=== PATIENT | male | born 1995 | race Caucasian/White ===

== ENCOUNTER 2018-01-05 11:32 | Emergency (ER) | payer OTHER ==
[~2018-01-05] VITALS: Ht 177.8 cm; Wt 86.9 kg
[~2018-01-05 11:32] MED LIST: ALBUAER INH
[2018-01-05 11:33] VITALS: Ht 177.8 cm; Wt 86.9 kg
[2018-01-05] MEDS ORDERED: SODIUM CHLORIDE 0.9% 1000ML 1,000 ML IV STA ×2 (11:57→13:35)
[2018-01-05] MEDS ORDERED: KETOROLAC TROMETHAMINE 15 MG/ML VIAL IV STA (11:57)
[2018-01-05] MEDS ORDERED: OPTIRAY 320 IV PRN (12:00)
[2018-01-05] MEDS ORDERED: EFF/375 PO (12:10)
[2018-01-05] MEDS ORDERED: ALBUAER INH (12:10)
[2018-01-05] MEDS ORDERED: CNC/18 PO (12:10)
[2018-01-05] MEDS ORDERED: MONT1TAB3 PO (12:10)
[2018-01-05 12:17] LABS: BASO % 0.1 %; BASO ABS # 0.02 K/uL (0-0.2); EOS % 0.1 %; EOS ABS # 0.01 K/uL (0-0.5); HEMATOCRIT 43.5 % (42-52); IG# 0.04 K/uL (0.00-0.02); LYMPH % 9.4 %; MEAN CELL VOLUME 81.9 fL (80-100); MEAN CORPUSCULAR HEMOGLOBIN 28.2 pg (25-34); MEAN CORPUSCULAR HGB CONC 34.5 g/dl (32-36); MEAN PLATELET VOLUME 9.9 fL (7.4-10.4); MONO % 15.8 %; MONO ABS # 2.68 K/uL (0.11-0.59); NEUT % 74.4 %; NEUT ABS # 12.64 K/uL (1.4-6.5); PLATELET COUNT 143 K/uL (130-400); RED CELL DISTRIBUTION WIDTH CV 13.5 % (11.5-14.5); RED CELL DISTRIBUTION WIDTH SD 40.6 fL (36.4-46.3); WHITE BLOOD COUNT 16.99 K/uL (4.8-10.8)
[2018-01-05 12:34] LABS: ALBUMIN 3.8 gm/dl (3.4-5.0); CALCIUM 9.2 mg/dl (8.5-10.1); POTASSIUM 4.1 mmol/L (3.5-5.1)
[2018-01-05 12:37] LABS: TOTAL PROTEIN 8.3 gm/dl (6.4-8.2)
--- NOTE | 2018-01-05 13:05 | DIAGNOSTIC IMAGING REPORT ---
ABD/PELVIS IV CONTRAST ONLY CT DOSE: 555.80 mGy.cm HISTORY: Pain. Fever. RLQ pain, fever TECHNIQUE: Multiaxial CT images of the abdomen and pelvis were performed following the use of intravenous contrast. A dose lowering technique was utilized adhering to the principles of ALARA. COMPARISON STUDY: None. FINDINGS: Lung bases are clear. Liver spleen pancreas and kidneys enhance uniformly. No evidence for hydronephrosis. Pancreas is uniform. The appendix is normal. Several fluid-filled loops of small bowel suggesting a mild ileitis. No evidence for abscess collection or obstruction. IMPRESSION: 1. Several fluid-filled loops of small bowel suggesting a mild ileitis.. 2. No evidence for abscess collection or obstruction. 3. Normal appendix. The above report was generated using voice recognition software. It may contain grammatical, syntax or spelling errors. Electronically signed by: Daniel Phelan M.D. 01/05/2018 1:04 PM Dictated Date/Time: 01/05/2018 12:57 PM
[2018-01-05] MEDS ORDERED: ACETAMINOPHEN 500 MG TAB ONE (13:24)
[2018-01-05 14:01] VITALS: BP 123/77; PULSE 90; O2SAT 95
[2018-01-05 14:48] VITALS: TEMP 37.2
[2018-01-05] MEDS ORDERED: AMOX875T PO (14:55)
--- NOTE | 2018-01-05 14:57 | EMERGENCY ROOM VISIT NOTE ---
History First contact with patient: 11:41 Chief Complaint: DIZZY Stated Complaint: DIZZY - REFERRED BY DR Sandoval Triage Summary: High fevers, inflamed tonsils, RLQ abdominal pain, dizziness, and dysuria x2 days. Thought he had an STI as he had recent unprotected intercourse, was tested, and prophylactically treated yesterday with rocephin IM and PO zithromax. Is also currently on cipro for UTI tx. History of Present Illness The patient is a 22 year old male who presents to the Emergency Room with multiple complaints. The patient reports that he has a fever. He feels that his body is "trying to fight something." He states that his symptoms started on Tuesday when his tonsils felt "warm." He then developed painful urination. He was seen a few days ago by the [facility] walk-in group. At that time, he was concerned that he might have an STI and he was treated with an injection of ceftriaxone and a one-time dose of Zithromax. They also started him on ciprofloxacin for presumed urinary tract infection. He was rechecked today and reported worsening symptoms with abdominal pain and sore throat. The patient has a history of mono a few years ago. Monospot was rechecked there and was negative. He also had a negative strep swab and negative flu swab. The patient rates his overall discomfort a 9/10. He states that he has achiness in his entire body. He denies any changes in bowel movements, nausea or vomiting. He does report he has had loose stools since starting the ciprofloxacin. Review of Systems A complete 10 point review of systems was reviewed with the patient with pertinent positives and negatives as per history of present illness. All else were negative. Past Medical/Surgical History Medical Problems: (1) Allergy to dog dander (2) Asthma Social History Smoking Status: Never Smoker Marital Status: single Housing Status: lives with roommate Occupation Status: student Current/Historical Medications Scheduled Amoxicillin & Pot Clavulanate (Augmentin 875-125 mg), 1 TAB PO BID Methylphenidate Hcl (Concerta), 18 MG PO DAILY Montelukast Sodium (Singulair), 10 MG PO DAILY Venlafaxine Hcl (Effexor), 37.5 MG PO DAILY Scheduled PRN Albuterol Sulfate (Proventil Hfa), 2 PUFFS INH Q4 PRN for SOB/Wheezing Physical Exam Vital Signs Date Time Temp Pulse Resp B/P (MAP) Pulse Ox O2 Delivery O2 Flow Rate FiO2 01/05/18 14:48 37.2 01/05/18 14:01 90 18 123/77 95 Room Air 01/05/18 13:21 38.3 01/05/18 12:57 37.6 95 18 137/74 96 Room Air 01/05/18 12:16 101 01/05/18 11:48 39.1 98 Room Air 01/05/18 11:43 107 24 111/63 117 129/83 112 118/83 01/05/18 11:33 37.7 114 20 137/75 96 Room Air Physical Exam VITALS: Vitals are noted on the nurse's note and reviewed by myself. Vital signs stable. GENERAL: This is a 22-year-old male, in no acute distress, nondiaphoretic, well- developed well-nourished. SKIN: The skin was without rashes. EARS: External auditory canals clear, tympanic membranes pearly nieves without erythema or effusion bilaterally. EYES: Pupils equal round and reactive to light and accommodation. MOUTH: Mucous membranes moist. Tonsils enlarged 3+ bilaterally with exudate present, specifically on the left tonsil. NECK: Supple without nuchal rigidity. No lymphadenopathy. HEART: Regular rate and rhythm without murmurs gallops or rubs. LUNGS: Clear to auscultation bilaterally without wheezes, rales or rhonchi. ABDOMEN: Positive bowel sounds x 4. Soft, nondistended. Moderate tenderness to palpation in the right lower quadrant with no guarding or rebound tenderness. NEURO: Patient was alert and oriented to person place and time. Medical Decision & Procedures ER Provider Diagnostic Interpretation: ABD/PELVIS IV CONTRAST ONLY FINDINGS: Lung bases are clear. Liver spleen pancreas and kidneys enhance uniformly. No evidence for hydronephrosis. Pancreas is uniform. The appendix is normal. Several fluid-filled loops of small bowel suggesting a mild ileitis. No evidence for abscess collection or obstruction. IMPRESSION: 1. Several fluid-filled loops of small bowel suggesting a mild ileitis.. 2. No evidence for abscess collection or obstruction. 3. Normal appendix. Electronically signed by: Daniel Phelan M.D. Laboratory Results 01/05/18 12:05 Red Blood Count 5.31, Mean Corpuscular Volume 81.9, Mean Corpuscular Hemoglobin 28.2, Mean Corpuscular Hemoglobin Concent 34.5, Mean Platelet Volume 9.9, Neutrophils (%) (Auto) 74.4, Lymphocytes (%) (Auto) 9.4, Monocytes (%) (Auto) 15.8, Eosinophils (%) (Auto) 0.1, Basophils (%) (Auto) 0.1, Neutrophils # (Auto ) 12.64, Lymphocytes # (Auto) 1.60, Monocytes # (Auto) 2.68, Eosinophils # (Auto ) 0.01, Basophils # (Auto) 0.02 01/05/18 12:05 Test 01/05/18 11:55 01/05/18 12:05 Urine Color DK YELLOW Urine Appearance CLEAR (CLEAR) Urine pH 5.5 (4.5-7.5) Urine Specific [place] 1.033 (1.000-1.030) Urine Protein 1+ (NEG) Urine Glucose (UA) NEG (NEG) Urine Ketones TRACE (NEG) Urine Occult Blood NEG (NEG) Urine Nitrite NEG (NEG) Urine Bilirubin NEG (NEG) Urine Urobilinogen NEG (NEG) Urine Leukocyte Esterase NEG (NEG) Urine WBC (Auto) 1-5 /hpf (0-5) Urine RBC (Auto) 5-10 /hpf (0-4) Urine Hyaline Casts (Auto) 1-5 /lpf (0-5) Urine Epithelial Cells (Auto) 10-20 /lpf (0-5) Urine Bacteria (Auto) NEG (NEG) White Blood Count 16.99 K/uL (4.8-10.8) Red Blood Count 5.31 M/uL (4.7-6.1) Hemoglobin 15.0 g/dL (14.0-18.0) Hematocrit 43.5 % (42-52) Mean Corpuscular Volume 81.9 fL (80-100) Mean Corpuscular Hemoglobin 28.2 pg (25-34) Mean Corpuscular Hemoglobin Concent 34.5 g/dl (32-36) Platelet Count 143 K/uL (130-400) Mean Platelet Volume 9.9 fL (7.4-10.4) Neutrophils (%) (Auto) 74.4 % Lymphocytes (%) (Auto) 9.4 % Monocytes (%) (Auto) 15.8 % Eosinophils (%) (Auto) 0.1 % Basophils (%) (Auto) 0.1 % Neutrophils # (Auto) 12.64 K/uL (1.4-6.5) Lymphocytes # (Auto) 1.60 K/uL (1.2-3.4) Monocytes # (Auto) 2.68 K/uL (0.11-0.59) Eosinophils # (Auto) 0.01 K/uL (0-0.5) Basophils # (Auto) 0.02 K/uL (0-0.2) RDW Standard Deviation 40.6 fL (36.4-46.3) RDW Coefficient of Variation 13.5 % (11.5-14.5) Immature Granulocyte % (Auto) 0.2 % Immature Granulocyte # (Auto) 0.04 K/uL (0.00-0.02) Anion Gap 7.0 mmol/L (3-11) Est Creatinine Clear Calc Drug Dose 118.6 ml/min Estimated GFR () 122.4 Estimated GFR (Non- 105.6 BUN/Creatinine Ratio 10.4 (10-20) Calcium Level 9.2 mg/dl (8.5-10.1) Total Bilirubin 0.8 mg/dl (0.2-1) Aspartate Amino Transf (AST/SGOT) 17 U/L (15-37) Alanine Aminotransferase (ALT/SGPT) 24 U/L (12-78) Alkaline Phosphatase 77 U/L (45-117) Total Protein 8.3 gm/dl (6.4-8.2) Albumin 3.8 gm/dl (3.4-5.0) Globulin 4.5 gm/dl (2.5-4.0) Albumin/Globulin Ratio 0.8 (0.9-2) Medications Administered Medications (Trade) Dose Ordered Sig/Dominga Route Start Time Stop Time Status Last Admin Dose Admin Sodium Chloride 1,000 ml @ 999 mls/hr Q1H1M STAT IV 01/05/18 11:57 01/05/18 12:57 DC 01/05/18 12:15 999 MLS/HR Ketorolac Tromethamine (Toradol Inj) 15 mg NOW STAT IV 01/05/18 11:57 01/05/18 11:59 DC 01/05/18 12:16 15 MG Acetaminophen (Tylenol Tab) 1,000 mg STK-MED ONCE .ROUTE 01/05/18 13:24 01/05/18 13:25 DC 01/05/18 13:28 1,000 MG Sodium Chloride 1,000 ml @ 999 mls/hr Q1H1M STAT IV 01/05/18 13:35 01/05/18 14:35 DC 01/05/18 13:35 999 MLS/HR Medical Decision Differential diagnosis includes strep pharyngitis, mononucleosis, appendicitis, UTI, pyelonephritis, colitis, influenza, among others. The patient is a 22-year-old male who presents today complaining of fever, sore throat, body aches and abdominal tenderness. Patient has seen his PCP twice in the past two days. These records were reviewed by myself. He was treated for possible STI with Zithromax and ceftriaxone. He has had negative monospot, influenza swab, and rapid strep. Labs revealed leukocytosis of 16.99, no concerning anemia or electrolyte abnormality. Urinalysis was not suggestive of infection. CT of abdomen and pelvis was performed and showed mild ileitis with no other acute findings. Vitals as well as patient's symptoms improved significantly with IV fluids, Toradol and Tylenol. Exam is consistent with strep pharyngitis, although he did have a negative rapid strep in the office yesterday. I will place the patient on Augmentin and have him stop the ciprofloxacin, as this will cover both for strep pharyngitis as well as potential for UTI. He was advised to alternate Tylenol and ibuprofen for fevers and drink plenty of fluids. Based on the patient's presentation and work up, I feel the patient is stable for outpatient treatment. The patient was educated to return to the emergency department for any worsening of their current condition or new/concerning symptoms. He will follow up with his PCP. Medication Reconcilliation Current Medication List: was personally reviewed by me Blood Pressure Screening Patient's blood pressure: Normal blood pressure Impression Primary Impression: Exudative pharyngitis Departure Information Dispostion Home / Self-Care Condition GOOD Prescriptions Amoxicillin & Pot Clavulanate (Augmentin 875-125 mg) 1 Tab Tab 1 TAB PO BID for 10 Days, #20 TAB Prov: Ruba Dumont ., DANIELLE 01/05/18 Referrals Elpidio Owens M.D. (PCP) Patient Instructions My [facility] Additional Instructions You were prescribed Augmentin to be taken twice daily as prescribed. This is an antibiotic. All antibiotics have the potential to cause diarrhea. Stop this medication and contact a medical provider if you were to develop any significant adverse side effects including: wheezing, shortness of breath, passing out, vomiting, or a diffuse rash. Always take antibiotics as directed and COMPLETE the ENTIRE course regardless of the improvement of your symptoms. For pain/fever control, you can use the following mwem-shh-kedxhnz medicines ( if >12 yo): - Regular strength (325mg/tab) Tylenol (acetaminophen) 2 tabs every 4-6 hours as needed. Do not exceed 12 tablets in a 24 hour period. Avoid taking more than 4 grams (4000 mg) of Tylenol per day. This includes any other sources of acetaminophen you may take on a regular basis. - Regular strength (200 mg/tab) Advil (ibuprofen) 3-4 tabs every 4-6 hours as needed. Do not exceed a dose of 3200 mg per day. Rest and make sure to drink plenty of fluids. Follow-up with your primary care provider for recheck. Return to the emergency department with any worsening or new/concerning symptoms.
== END 2018-01-05 15:11 | disposition home or self-care (01) ==
LOC: C.EDB 11:33 → C.EDA 15:11
DX: J02.9 Acute pharyngitis, unspecified (principal); J45.909 Unspecified asthma, uncomplicated; Z79.899 Other long term (current) drug therapy; Z91.048 Other nonmedicinal substance allergy status

== ENCOUNTER 2018-01-06 23:25 | Emergency (ER) | payer OTHER ==
[~2018-01-06] VITALS: Ht 177.8 cm; Wt 88.9 kg
[~2018-01-06 23:25] MED LIST changes: +AMOX875T PO; +CNC/18 PO; +EFF/375 PO; +MONT1TAB3 PO
[2018-01-06 23:26] VITALS: Ht 177.8 cm; Wt 88.9 kg
[2018-01-06] MEDS ORDERED: SODIUM CHLORIDE 0.9% 1000ML 1,000 ML IV STA (23:49)
[2018-01-06] MEDS ORDERED: ACETAMINOPHEN 500 MG TAB PO STA (23:49)
[2018-01-07 00:13] LABS: BASO % 0.1 %; BASO ABS # 0.01 K/uL (0-0.2); EOS % 0.1 %; EOS ABS # 0.01 K/uL (0-0.5); HEMATOCRIT 37.5 % (42-52); HEMOGLOBIN 13.1 g/dL (14.0-18.0); IG# 0.02 K/uL (0.00-0.02); LYMPH % 8.9 %; MEAN CELL VOLUME 80.8 fL (80-100); MEAN CORPUSCULAR HEMOGLOBIN 28.2 pg (25-34); MEAN CORPUSCULAR HGB CONC 34.9 g/dl (32-36); MEAN PLATELET VOLUME 10.3 fL (7.4-10.4); MONO ABS # 2.16 K/uL (0.11-0.59); NEUT % 74.8 %; NEUT ABS # 10.07 K/uL (1.4-6.5); PLATELET COUNT 136 K/uL (130-400); RED CELL DISTRIBUTION WIDTH CV 13.3 % (11.5-14.5); RED CELL DISTRIBUTION WIDTH SD 39.2 fL (36.4-46.3); WHITE BLOOD COUNT 13.47 K/uL (4.8-10.8)
[2018-01-07 00:30] LABS: ALBUMIN 3.4 gm/dl (3.4-5.0); CREATININE 0.82 mg/dl (0.60-1.40); POTASSIUM 3.1 mmol/L (3.5-5.1)
[2018-01-07 00:43] LABS: TOTAL PROTEIN 7.2 gm/dl (6.4-8.2)
[2018-01-07 00:44] VITALS: BP 121/77; PULSE 81; TEMP 36.9; O2SAT 98
[2018-01-07] MEDS ORDERED: POTASSIUM CHLORIDE 20 MEQ TABCR PO STA (00:57)
[2018-01-07] MEDS ORDERED: POTASSIUM CHLORIDE 10 MEQ TABCR ONE (01:02)
--- NOTE | 2018-01-07 01:02 | EMERGENCY ROOM VISIT NOTE ---
History First contact with patient: 23:38 Chief Complaint: FEVER Stated Complaint: FEVER INCREASED, SHARP PAIN IN LEFT SIDE History of Present Illness The patient is a 22 year old male who presents to the Emergency Room with complaints of a fever. The patient was seen here yesterday and diagnosed with strep pharyngitis. He states that he has had a continued fever. He states his fever has been up to 103F. He has been taking ibuprofen but his fever has been returning when the ibuprofen wears off. He has been having chills and sweating. He has been taking 400 mg ibuprofen every 4 hours, but did take a dose of 600 mg 1.5 hours prior to arrival. He had a sharp pain in his left lower back earlier but this resolved. He has been staying hydrated by drinking Gatorade. He rates his overall discomfort a 9/10. He denies any other new symptoms. He does state that he feels slightly better from his visit yesterday. He called his PCP today who suggested that he use ice packs. He denies difficulty breathing, difficulty swallowing, abdominal pain or vomiting. Review of Systems A complete 10 point review of systems was reviewed with the patient with pertinent positives and negatives as per history of present illness. All else were negative. Past Medical/Surgical History Medical Problems: (1) Allergy to dog dander (2) Asthma Social History Smoking Status: Never Smoker Marital Status: single Housing Status: lives with roommate Occupation Status: student Current/Historical Medications Scheduled Amoxicillin & Pot Clavulanate (Augmentin 875-125 mg), 1 TAB PO BID Methylphenidate Hcl (Concerta), 18 MG PO DAILY Montelukast Sodium (Singulair), 10 MG PO DAILY Venlafaxine Hcl (Effexor), 37.5 MG PO DAILY Scheduled PRN Albuterol Sulfate (Proventil Hfa), 2 PUFFS INH Q4 PRN for SOB/Wheezing Physical Exam Vital Signs Date Time Temp Pulse Resp B/P (MAP) Pulse Ox O2 Delivery O2 Flow Rate FiO2 01/07/18 00:44 36.9 81 18 121/77 98 Room Air 01/06/18 23:26 39.2 108 20 128/66 96 Room Air Physical Exam VITALS: Vitals are noted on the nurse's note and reviewed by myself. GENERAL: This is a 22-year-old male, in no acute distress, nondiaphoretic, well- developed well-nourished. SKIN: The skin was without rashes. EARS: External auditory canals clear, tympanic membranes pearly nieves without erythema or effusion bilaterally. EYES: Pupils equal round and reactive to light and accommodation. MOUTH: Mucous membranes moist. Tonsils are enlarged bilaterally. Exudate present bilaterally. NECK: Supple without nuchal rigidity. Bilateral cervical lymphadenopathy. HEART: Regular rate and rhythm without murmurs gallops or rubs. LUNGS: Clear to auscultation bilaterally without wheezes, rales or rhonchi. No retractions or accessory muscle use. ABDOMEN: Positive bowel sounds x 4. Soft, nontender to palpation. NEURO: Patient was alert and oriented to person place and time. Medical Decision & Procedures Laboratory Results 01/06/18 23:55 Red Blood Count 4.64, Mean Corpuscular Volume 80.8, Mean Corpuscular Hemoglobin 28.2, Mean Corpuscular Hemoglobin Concent 34.9, Mean Platelet Volume 10.3, Neutrophils (%) (Auto) 74.8, Lymphocytes (%) (Auto) 8.9, Monocytes (%) (Auto) 16.0, Eosinophils (%) (Auto) 0.1, Basophils (%) (Auto) 0.1, Neutrophils # (Auto ) 10.07, Lymphocytes # (Auto) 1.20, Monocytes # (Auto) 2.16, Eosinophils # (Auto ) 0.01, Basophils # (Auto) 0.01 01/06/18 23:55 Test 01/06/18 23:55 White Blood Count 13.47 K/uL (4.8-10.8) Red Blood Count 4.64 M/uL (4.7-6.1) Hemoglobin 13.1 g/dL (14.0-18.0) Hematocrit 37.5 % (42-52) Mean Corpuscular Volume 80.8 fL (80-100) Mean Corpuscular Hemoglobin 28.2 pg (25-34) Mean Corpuscular Hemoglobin Concent 34.9 g/dl (32-36) Platelet Count 136 K/uL (130-400) Mean Platelet Volume 10.3 fL (7.4-10.4) Neutrophils (%) (Auto) 74.8 % Lymphocytes (%) (Auto) 8.9 % Monocytes (%) (Auto) 16.0 % Eosinophils (%) (Auto) 0.1 % Basophils (%) (Auto) 0.1 % Neutrophils # (Auto) 10.07 K/uL (1.4-6.5) Lymphocytes # (Auto) 1.20 K/uL (1.2-3.4) Monocytes # (Auto) 2.16 K/uL (0.11-0.59) Eosinophils # (Auto) 0.01 K/uL (0-0.5) Basophils # (Auto) 0.01 K/uL (0-0.2) RDW Standard Deviation 39.2 fL (36.4-46.3) RDW Coefficient of Variation 13.3 % (11.5-14.5) Immature Granulocyte % (Auto) 0.1 % Immature Granulocyte # (Auto) 0.02 K/uL (0.00-0.02) Anion Gap 7.0 mmol/L (3-11) Est Creatinine Clear Calc Drug Dose 157.3 ml/min Estimated GFR () 144.5 Estimated GFR (Non- 124.6 BUN/Creatinine Ratio 9.2 (10-20) Calcium Level 8.0 mg/dl (8.5-10.1) Total Bilirubin 0.6 mg/dl (0.2-1) Aspartate Amino Transf (AST/SGOT) 17 U/L (15-37) Alanine Aminotransferase (ALT/SGPT) 27 U/L (12-78) Alkaline Phosphatase 70 U/L (45-117) Total Protein 7.2 gm/dl (6.4-8.2) Albumin 3.4 gm/dl (3.4-5.0) Globulin 3.8 gm/dl (2.5-4.0) Albumin/Globulin Ratio 0.9 (0.9-2) Monoscreen NEG (NEG) Medications Administered Medications (Trade) Dose Ordered Sig/Dominga Route Start Time Stop Time Status Last Admin Dose Admin Sodium Chloride 1,000 ml @ 999 mls/hr Q1H1M STAT IV 01/06/18 23:49 01/07/18 00:49 DC 01/06/18 23:58 999 MLS/HR Acetaminophen (Tylenol Tab) 1,000 mg NOW STAT PO 01/06/18 23:49 01/06/18 23:51 DC 01/06/18 23:58 1,000 MG Potassium Chloride (Klor-Con Tab) 20 meq NOW STAT PO 01/07/18 00:57 5 00:59 DC 01/07/18 00:57 20 MEQ Medical Decision Differential diagnosis includes pharyngitis, peritonsillar abscess, mononucleosis, pneumonia, sepsis, among others. The patient is a 22-year-old male who presents today complaining of a fever. Patient was seen here one day ago by myself and appears to have strep pharyngitis. He has been taking the Augmentin as prescribed. He is here because he has still had a fever. I asked him why he has not taken Tylenol and he states that he does not have any at home. He was given 1 g Tylenol here with resolution of his fever and improvement of his tachycardia. He was hydrated with 1 L normal saline solution. Labs today reveal a leukocytosis of 13,000, improved since his visit yesterday. Patient is slightly hypokalemic and was given 20 mEq potassium orally. I discussed alternating Tylenol and ibuprofen to control the patient's fever at home. I advised him to stay well- hydrated and follow-up with his PCP on Tuesday. He is very well-appearing on exam and clinically appears better than he did yesterday. Based on the patient's presentation and work up, I feel the patient is stable for outpatient treatment. The patient was educated to return to the emergency department for any worsening of their current condition or new/concerning symptoms. He will follow up with his PCP. Medication Reconcilliation Current Medication List: was personally reviewed by me Blood Pressure Screening Patient's blood pressure: Normal blood pressure Impression Primary Impression: Pharyngitis Additional Impression: Fever Departure Information Dispostion Home / Self-Care Condition GOOD Referrals Elpidio Owens M.D. (PCP) Patient Instructions My [facility] Additional Instructions You were treated in the emergency department today for a fever. For fever control, you can use the following loor-lek-lrxjdqb medicines (if >12 yo): - Extra strength (500mg/tab) Tylenol (acetaminophen) 2 tabs every 6 hours as needed. Avoid taking more than 4 grams (4000 mg) of Tylenol per day. This includes any other sources of acetaminophen you may take on a regular basis. - Regular strength (200 mg/tab) Advil (ibuprofen) 3-4 tabs every 6 hours as needed. Do not exceed a dose of 3200 mg per day. Continue to rest and drink plenty of fluids. Continue your antibiotics as prescribed. Follow-up with your primary care provider in 48 hours for a recheck. Return to the emergency department with any worsening or new/concerning symptoms. Problem Qualifiers Primary Impression: Pharyngitis Pharyngitis/tonsillitis etiology: unspecified etiology Qualified Codes: J02.9 - Acute pharyngitis, unspecified Additional Impression: Fever Fever type: unspecified Qualified Codes: R50.9 - Fever, unspecified
== END 2018-01-07 01:10 | disposition home or self-care (01) ==
LOC: C.EDB 23:25
DX: J02.9 Acute pharyngitis, unspecified (principal); R50.9 Fever, unspecified; J45.909 Unspecified asthma, uncomplicated; Z91.09 Other allergy status, other than to drugs and biological substances